=== PATIENT | female | born 1995 | race Caucasian/White ===

== ENCOUNTER 2023-08-30 11:58 | Emergency (ER) | payer OTHER, SELFPAY ==
[2023-08-30 12:07] VITALS: BP 134/100
--- NOTE | 2023-08-30 12:22 | EDRN ---
Pt is seated in a chair. She seems to be a bit angry with her parents; her answers tend to be argumentative to them.
--- NOTE | 2023-08-30 12:47 | ED.GENMED ---
History of Present Illness
<Karina Mcneal PA-C - Last Filed: 08/30/23 23:11>
General
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
Source: patient and family
Exam Limitations: none
Time Seen by Provider: 08/30/23 12:14
Nursing documentation reviewed up to this point in time: agreed with
History of Present Illness
History of Present Illness:
Patient is a 27 year old female presenting with urinary discomfort for the past few days. Patients parents state that she initially started complaining of dysuria approximately 1 week ago while they were on a [employer] cruise. Patient's mom
happened to have an old prescription for ciprofloxacin with her so she started giving her daughter ciprofloxacin 500 mg twice a day to treat a presumed UTI. Symptoms did not seem to resolve completely. Patient was seen by her GRAIN BROKER AND MARKET OPERATOR 2 days ago
where she had a pelvic exam and told that she had vaginitis. She was prescribed antifungal cream.. Urinalysis performed in office which showed no evidence of a current UTI. Patient has been continuously complaining of lower abdominal discomfort
and dysuria. Her parents brought her to the emergency department for further evaluation.
She denies any fever, chills, nausea, vomiting, anorexia. No back pain. No abnormal vaginal bleeding or discharge. Patient is not currently sexually active
Review of Systems
<Karina Mcneal PA-C - Last Filed: 08/30/23 23:11>
Review of Systems
Allergies reviewed?: Yes
All Other Systems: ROS reviewed and negative except as documented in HPI and ROS
Phy Exam
<Karina Mcneal PA-C - Last Filed: 08/30/23 23:11>
Physical Exam
Physical Exam:
Vitals: Patient's vital signs are stable. Afebrile
General: Patient is well appearing, no acute distress. Nontoxic appearing
Skin: Warm and dry, no rashes or lesions
Head: Normocephalic, atraumatic
Eyes: Sclera nonicteric. EOMs intact. No nystagmus.
Throat: Protecting airway
Neck: Normal ROM, no cervical spine tenderness, no meningismus
Cardiac: Regular rate and rhythm, no murmurs.
Pulm: Normal respiratory effort, no wheezes, rales, rhonchi heard on exam.
Abdomen: Abdomen soft. Very mild suprapubic tenderness without rebound tenderness or guarding. No CVA tenderness. No bruising or rashes overlying bilateral flanks.
Extremities: No evidence of cyanosis or edema. Great distal pulses.
Neuro: AAOx3. CN II-XII intact. No focal neurologic deficits.
Psychiatric: Normal affect.
Course
<Karina Mcneal PA-C - Last Filed: 08/30/23 23:11>
Orders/Labs/Results
Orders:
Orders
08/30/23 12:56
Test Result ONCE
08/30/23 13:36
Urinalysis Urgent
Date Specimen was Collected: 08/30/23
Time Specimen was Collected: 13:08
Urine Microscopic Urgent
Date Specimen was Collected: 08/30/23
Time Specimen was Collected: 13:08
Urine,Hcg qualitative screen [HCG, Urine Qualitative Screen] Urgent
Date Specimen was Collected: 08/30/23
Time Specimen was Collected: 13:08
Urine Culture Urgent
OPAL Source: Urine
Specimen Description:
Obtained by: [facility]
Date Specimen was Collected: 08/30/23
Time Specimen was Collected: 13:08
Abnormal Lab Results
08/30/23
13:36
Urine Ketones 1+ A
(Negative)
Urine Occult Blood 1+ A
(Negative)
Urine Bacteria Few A
(Negative)
Vital Signs
Temp: 98.6 F
Initial and Last Documented VS:
Initial Vital Signs
Pulse Resp BP Pulse Ox
98 16 134/100 100
08/30/23 12:07 08/30/23 12:07 08/30/23 12:07 08/30/23 12:07
Last Documented Vital Signs
Temp Pulse Resp BP Pulse Ox
98.6 F 98 16 134/100 100
08/30/23 12:48 08/30/23 12:07 08/30/23 12:07 08/30/23 12:07 08/30/23 12:07
<Halie Kimberlee, DO - Last Filed: 08/30/23 14:39>
Orders/Labs/Results
Orders:
Orders
08/30/23 12:56
Test Result ONCE
08/30/23 13:36
Urinalysis Urgent
Date Specimen was Collected: 08/30/23
Time Specimen was Collected: 13:08
Urine Microscopic Urgent
Date Specimen was Collected: 08/30/23
Time Specimen was Collected: 13:08
Urine,Hcg qualitative screen [HCG, Urine Qualitative Screen] Urgent
Date Specimen was Collected: 08/30/23
Time Specimen was Collected: 13:08
Urine Culture Urgent
OPAL Source: Urine
Specimen Description:
Obtained by: [employer] [facility]
Date Specimen was Collected: 08/30/23
Time Specimen was Collected: 13:08
Abnormal Lab Results
08/30/23
13:36
Urine Ketones 1+ A
(Negative)
Urine Occult Blood 1+ A
(Negative)
Urine Bacteria Few A
(Negative)
Vital Signs
Initial and Last Documented VS:
Initial Vital Signs
Pulse Resp BP Pulse Ox
98 16 134/100 100
08/30/23 12:07 08/30/23 12:07 08/30/23 12:07 08/30/23 12:07
Last Documented Vital Signs
Temp Pulse Resp BP Pulse Ox
98.6 F 98 16 134/100 100
08/30/23 12:48 08/30/23 12:07 08/30/23 12:07 08/30/23 12:07 08/30/23 12:07
<Karina Mcneal PA-C - Last Filed: 08/30/23 23:11>
MDM/Problems Addressed
Differential Diagnosis Includes:
Not limited to: UTI, pyelonephritis, kidney stone, etc
MDM/Problems Addressed:
27 year old female presenting with persistent dysuria and mild suprapubic discomfort following 5 days of ciprofloxacin. No fevers, chills, nausea, or vomiting. There was no diagnostic UA performed prior to initiation of antibiotic therapy - mom had
leftover medication at home. Patient did see OBGYN 2 days prior to ER visit, had pelvic exam and started on antifungal cream for suspected vaginitis. Vitals stable here in emergency department - patient is afebrile. Physical exam as noted above
although somewhat limited due to patients behavioral difficulties. Benign abdominal exam. No CVA tenderness. Very low suspicion for acute intraabdominal infectious process vs ovarian etiology. Will plan to check a UA - although results may be
inconclusive given concurrent abx therapy. Will send urine culture. Did discuss possible pelvic US which both parents and patient want to hold off on given patients behavioral challenges which I feel is reasonable.
UA somewhat equivocal for infection. Positive for bacteria although no evidence of WBCs or nitrite. Culture will be sent. Given persistence of symptoms - will switch patient to keflex and prescribe Azo for symptomatic management. Stable for
discharge. Return precautions discussed. Patient will follow-up with OBGYN this week.
Chronic conditions affecting care:
N/A
Acute Exacerbation and/or Progression of Chronic Illness:
N/A
<Karina Mcneal PA-C - Last Filed: 08/30/23 23:11>
*Pulse Oximetry
Patient hypoxic: no
*EKG
Interpreted by ED Provider?: NA
*Homebound Teacher Interpretation
Rate: Homebound Teacher- N/A
*Critical Care Note
Total Time (30-74mins, 75-104mins- exclusive of procedures): Not Applicable
Data Reviewed
Review of Other/Old Records Reveals: Records (Urinalysis performed a few days ago-no evidence of current UTI)
ED Attending Note
<Karina Mcneal PA-C - Last Filed: 08/30/23 23:11>
-
Portions of this chart may have been created with voice recognition software.� Occasional wrong word or��sound alike� substitutions may have occurred due to the inherent limitations of voice recognition software.
<Halie Mohan DO - Last Filed: 08/30/23 14:39>
ED Attending Note
Patient seen and examined by attending physician: Yes
I performed the substantive portion of visit, reviewed & personally made and approve the management plan that is documented in note by myself or NKECHI.: Yes
I performed a history and physical exam of patient and discussed management with resident, I reviewed resident's note and agree with documented findings and plan of care.: Yes
ED Attending Note:
27-year-old female presenting to the emergency department for dysuria and discomfort with urination. Notes symptoms for the past week. Patient had previously been on a cruise, other home leftover ciprofloxacin so gave it to her daughter with
suspicion for UTI. Symptoms persisted, so patient went to the polish compounder yesterday, had a urinalysis checked, unremarkable. She also had a pelvic exam, told that she had vaginitis and was started on a antifungal cream. She notes that she is
still having dysuria, prompting her to come little today. Patient does have some health issues, difficulty communicating. Vital signs are normal.
On exam, well-appearing, nontoxic. Difficult examination given patient's behavioral issues. Abdominal exam benign. Low suspicion for any serious intra-abdominal process or infection such as ovarian pathology. No lateralizing tenderness.
Continue to suspect UTI, possible resistance to ciprofloxacin. Urinalysis checked, few bacteria. Given persistence of symptoms, will change to Keflex. Will also treat with Azo for dysuria. Otherwise feel stable for continued outpatient follow-up.
Discharge Plan
Departure
Patient Disposition: Home (Routine Discharge)
Date of Disposition: 08/30/23
Time of Disposition: 14:22
Patient with high blood pressure during this ER visit?: Yes
Condition: Good
Covid-19: Not Applicable
Discharge Problem:
Dysuria, Bacteria in urine
Instructions: Urinary Tract Infection, Adult (DC), Dysuria, Adult (DC), BLOOD PRESSURE
Prescriptions:
New
cephalexin 500 mg capsule
500 mg PO BID 5 Days Qty: 10 0RF
phenazopyridine 200 mg tablet
200 mg PO TID Qty: 6 0RF
Referrals:
Gena Saravia DO [Active] - Next open appointment
Loida Torres DO [Family Provider] - Follow up in 5-7 days
Activity Restrictions/Additional Instructions:
RETURN TO THE EMERGENCY DEPARTMENT WITH ANY FEVERS, CHILLS, SEVERE ABDOMINAL PAIN, SEVERE BACK PAIN, INTRACTBALE NAUSEA/VOMITING, LOSS OF APPETITE, WORSENING IN CURRENT SYMPTOMS, OR ANY OTHER CONCERNS
-Two prescriptions have been sent to your pharmacy. You can discontinue the ciprofloxacin and begin taking the cephalexin twice per day for the next 5 days. You can take phenazopyridine three times per day x up to 2 days as needed for urinary
discomfort. This may cause discoloration in your urine.
-A urine culture has been sent. We will call if your treatment needs to be adjusted
-As discussed- you should follow up with your primary care provider / OBGYN for further evaluation
Interventions
Interventions:
*Risk Screen - Suicide Last Done: 08/30/23 12:20
*General Assessment Last Done: 08/30/23 12:07
*Neglect/Abuse Screening Last Done: 08/30/23 12:20
*ED COVID-19 Vaccine History Last Done: 08/30/23 12:07
*Nursing Disposition Last Done: 08/30/23 14:44
ED-Female Genitourinary Assessment Last Done: 08/30/23 13:09
Discharge Date and Time
Discharge Date/Time: 08/30/23 14:45
Print Language: BENGALI
[2023-08-30 13:49] LABS: Urine Albumin Trace (Neg - Trace); Urine Bilirubin Negative (Negative); Urine Character Clear (Clear); Urine Color Yellow; Urine Glucose Negative (Negative); Urine Ketone 1+ (Negative); Urine Leukocyte Negative (Negative); Urine Nitrite Negative (Negative); Urine Occult Blood 1+ (Negative); Urine Specific Gravity 1.025 (<1.030); Urine Urobilinogen Negative (Neg - 1+)
[2023-08-30 13:52] LABS: HCG, Urine Qualitative Screen Negative
[2023-08-30 13:56] LABS: Urine Red Blood Cell 0-2 /HPF (0-2); Urine Squamous Cell >30 /LPF (Few)
[2023-08-30 13:57] LABS: Urine Bacteria Few (Negative)
== END 2023-08-30 14:45 | disposition home or self-care (01) ==
LOC: EMR 11:58
PROVIDERS: Physician Assistant; EMERGENCY PHYSICIAN Student in an Organized Health Care Education/Training Program; FAMILY PHYSICIAN Family Medicine
DX: R30.0 Dysuria (principal); R82.71 Bacteriuria; R10.30 Lower abdominal pain, unspecified
CPT/HCPCS: 99283; 81003; 81015; 81025; 87077; 87086; 87186

== ENCOUNTER 2023-09-04 22:24 | Emergency (ER) | payer OTHER, SELFPAY ==
[2023-09-04 22:31] VITALS: BP 149/106
[2023-09-04 23:33] VITALS: BMI 31.9
[2023-09-04 23:57] LABS: % Basophils 0.4 % (0-2); % Eosinophils 1.9 % (0-6); % Immature Granulocytes 0.3 % (0-0.5); % Lymphocytes 31.2 % (20.5-51.1); % Monocytes 8.3 % (1.7-9.3); % Neutrophils 57.9 % (42.2-75.2); Absolute Eosinophils 0.2 10^3/uL (0-0.7); Absolute Lymphocytes 2.8 10^3/uL (1.2-3.4); Absolute Monocytes 0.8 10^3/uL (0.1-0.6); Absolute Neutrophils 5.2 10^3/uL (1.4-6.5); Hematocrit 38.5 % (37.0-47.0); Hemoglobin 13.6 g/dL (12.0-16.0); Mean Corp Hgb Conc. 35.3 g/dL (33.0-37.0); Mean Corpuscular Hgb 29.4 pg (27.0-31.0); Mean Corpuscular Volume 83.2 fL (81.0-99.0); Mean Platelet Volume 9.7 fL (7.4-10.4); Nucleated Red Blood Cells % 0 %; Platelet Count 258 10^3/uL (130-400); Red Blood Cell Count 4.63 10^6/uL (4.20-5.40); Red Cell Dist. Width 13.7 % (11.5-14.5)
[2023-09-05 00:12] LABS: HCG, Serum Qualitative Screen Negative
[2023-09-05 00:16] LABS: ALT (SGPT) 24 U/L (0-35); AST (SGOT) 25 U/L (14-36); Albumin 4.4 g/dl (3.5-5.0); Alkaline Phosphatase 65 U/L (38-126); Blood Urea Nitrogen 19 mg/dl (7-17); Calcium 9.3 mg/dl (8.4-10.2); Carbon Dioxide 25 mmol/L (22-30); Chloride 105 mmol/L (98-107); Estimated Creatinine Clearance 118 ml/min; Glucose 82 mg/dl (70-99); Potassium 3.9 mmol/L (3.5-5.1); Sodium 137 mmol/L (135-145); Total Bilirubin 0.7 mg/dl (0.2-1.3); Total Protein 6.9 g/dl (6.3-8.2); eGFR > 60.00
--- NOTE | 2023-09-05 00:36 | ED.GENMED ---
History of Present Illness
General
Chief Complaint: Urinary Symptoms
Source: patient, family (Mother and father-accompanying) and previous hospital records (ED visit for very similar complaint to August 29. Urinalysis appeared to be contaminated specimen with greater than 30 squamous epithelial cells, few bacteria, 3-5
WBCs. Urine culture however growing greater than 100,000 colony count E. coli, sensitive to cefazolin, resistant to Levaquin)
Exam Limitations: none
Time Seen by Provider: 09/04/23 23:30
Nursing documentation reviewed up to this point in time: agreed with
History of Present Illness
History of Present Illness:
This is a 27-year-old female with history of Prader-Willi syndrome. Mild intellectual disability. Resides at home with her parents. She complains of more than 2-week history of suprapubic discomfort initially associated with dysuria. Symptoms
initially began while family was on [place]. Initially treated with a 5-day course of Cipro�an old prescription of mom's with no improvement in symptoms. Mom admits that Cipro prescription was approximately 8 years old.
She was evaluated by her automat car attendant August 27, urine dip during that visit was unremarkable and was diagnosed with vaginitis, treated with antifungal cream.
She then presented to this ED August 29 with similar complaints of suprapubic discomfort and dysuria. Urinalysis showed only few bacteria but appeared to be a contaminated specimen with greater than 30 squamous epithelial cells. Treated for
presumptive UTI with a 5-day course of Keflex 500 mg twice daily.
Urine culture is positive for E. coli, sensitive to cefazolin, resistant to Levaquin, resistant to Bactrim. Patient had mild improvement in symptoms 2 to 3 days ago but has since returned.
She has not had a fever nor chills, she denies back pain or flank pain, no difficulty moving her bowels. No nausea nor vomiting.
Last menstrual period 3 weeks ago, normal and on time.
Past History
Past History
ED Past Medical History: Other (Prader-Willi syndrome)
ED Past Surgical History: Orthopedic and Tonsilectomy
Social History
Tobacco: Non-smoker
Alcohol: None
Drug: None
Personal: Single
Living: with family
Employment: Not employed
Family History
Family History: Other (Noncontributory)
Phy Exam
Physical Exam
Physical Exam:
GENERAL: 27-year-old female appears somewhat younger than stated age. Mild intellectual delay. She is bright and alert, easily communicative, occasionally boisterous but overall appears in no acute distress. Both mother and father are
accompanying.
EYE: anicteric
NECK: Supple, nontender, no meningismus, no significant adenopathy.
ENT: oral mucosa is moist. No rhinorrhea.
CARDIAC: Regular rate and rhythm. no murmur.
LUNGS: Clear breath sounds bilaterally, no acute respiratory distress, no wheezes/rales/rhonchi
ABDOMEN: Rotund, soft, nondistended, minimal tenderness with deep palpation only to the suprapubic region, no r/g, no cvat. No palpable masses. Bladder is not palpably distended. Normoactive BS.
NEUROLOGICAL: Alert and oriented x3, no focal neuro deficits. Gait is tinajero and steady.
SKIN: Warm and dry, normal color, skin intact. No rash.
MUSCULOSKELETAL: No C/C/E. peripheral pulses are full and equal b/l. No palpable tenderness.
PSYCH: Intermittently briefly argumentative, somewhat boisterous, cooperative.
Course
Orders/Labs/Results
Orders:
Orders
09/04/23 23:40
Test Result ONCE
09/04/23 23:51
CRP [C-Reactive Protein] Urgent
Complete Blood Count/With Diff Urgent
Comprehensive Metabolic Panel Urgent
HCG, Serum Qualitative Screen Urgent
09/05/23 01:31
Urinalysis Reflex To Culture Urgent
Date Specimen was Collected: 09/05/23
Time Specimen was Collected: 01:29
Urine Microscopic Reflex Cult Urgent
09/05/23 23:42
US Pelvis Only (non-obstetric) Urgent
Reason For Exam: PELVIC PAIN X 2 WEEKS
Abnormal Lab Results
09/04/23 09/05/23
23:51 01:31
Absolute Monos (auto) 0.8 H 10^3/uL
(0.1-0.6)
BUN 19 H mg/dl
(7-17)
Ur Occult Blood Reflex 1+ A
(Negative)
Urine Glucose 1+ A
(Negative)
09/04/23 23:51
09/04/23 23:51
Vital Signs
Initial and Last Documented VS:
Initial Vital Signs
Temp Pulse Resp BP Pulse Ox
98 F 96 14 149/106 97
09/04/23 22:31 09/04/23 22:31 09/04/23 22:31 09/04/23 22:31 09/04/23 22:31
Last Documented Vital Signs
Temp Pulse Resp BP Pulse Ox
98 F 96 14 149/106 97
09/04/23 22:31 09/04/23 22:31 09/04/23 22:31 09/04/23 22:31 09/04/23 22:31
MDM/Problems Addressed
Differential Diagnosis Includes:
Concern for persistent UTI. Urine culture positive for E. coli and sensitive to cefazolin but concern for inadequate dosing at 500 mg twice daily for 5 days.
Other consideration is interstitial cystitis, ovarian cyst, colitis. Appendicitis is less likely.
Will check labs, inflammatory markers and plan for pelvic ultrasound.
*Radiology
Radiology exam reviewed: radiology read reviewed (Pelvic ultrasound is unremarkable.)
*Pulse Oximetry
Patient hypoxic: no
*Critical Care Note
Total Time (30-74mins, 75-104mins- exclusive of procedures): Not Applicable
Update Note
Update Note:
09/05/2023 0216 AM
Patient resting comfortably, reports relief of abdominal pain/pelvic pain currently.
Labs are reassuring, all within normal limits including normal white blood cell count, normal CRP.
Urinalysis is pending however with current antibiotic use I suspect we will not be helpful and will await repeat culture.
I have concern for partially treated UTI due to subtherapeutic Keflex dosing thus recommend we increase Keflex to 2000 mg twice daily over the next 5 days.
Discussed importance of remaining well-hydrated on a daily basis.
Continue ibuprofen 600 mg every 6-8 hours as needed for pain.
Prompt follow-up with PCP for recheck.
ED Attending Note
-
Portions of this chart may have been created with voice recognition software.� Occasional wrong word or��sound alike� substitutions may have occurred due to the inherent limitations of voice recognition software.
Discharge Plan
Departure
Patient Disposition: Home (Routine Discharge)
Date of Disposition: 09/05/23
Time of Disposition: 02:13
Patient with high blood pressure during this ER visit?: No
Condition: Good
Discharge Problem:
Pelvic pain, PERSISTENT UTI
Instructions: Urinary tract infections in adults, Pelvic Pain ED
Prescriptions:
New
cephalexin 500 mg capsule
1,000 mg PO BID 5 Days Qty: 20 0RF
No Action
cephalexin 500 mg capsule
500 mg PO BID 5 Days Qty: 10 0RF
phenazopyridine 200 mg tablet
200 mg PO TID Qty: 6 0RF
Referrals:
Loida Torres DO [Family Provider] - Call in 1-3 days for appt
Interventions
Interventions:
*Risk Screen - Suicide Last Done: 09/04/23 22:31
*General Assessment Last Done: 09/04/23 22:31
*Neglect/Abuse Screening Last Done: 09/04/23 22:31
ED- Fall Risk Assessment Last Done: 09/04/23 23:33
ED-Female Genitourinary Assessment Last Done: 09/04/23 23:33
Discharge Date and Time
Print Language: TELUGU
[2023-09-05 01:40] LABS: Urine Albumin Negative (Neg - Trace); Urine Bilirubin Negative (Negative); Urine Character Clear (Clear); Urine Color Yellow; Urine Glucose 1+ (Negative); Urine Ketone Negative (Negative); Urine Leukocyte Negative (Negative); Urine Nitrite Negative (Negative); Urine Occult Blood 1+ (Negative); Urine Specific Gravity 1.015 (<1.030); Urine Urobilinogen Negative (Neg - 1+)
[2023-09-05 02:06] LABS: Urine Bacteria Few (Negative); Urine Squamous Cell >30 /LPF (Few); Urine White Cell 0-2 /HPF (0-5)
[2023-09-05] MEDS: KEFLEX 1000 MG PO (02:17)
[2023-09-05 02:32] VITALS: BP 138/85
== END 2023-09-05 02:33 | disposition home or self-care (01) ==
LOC: EMR 22:24
PROVIDERS: EMERGENCY PHYSICIAN Emergency Medicine; FAMILY PHYSICIAN Family Medicine
DX: R10.2 Pelvic and perineal pain (principal); N39.0 Urinary tract infection, site not specified; Q87.11 Prader-Willi syndrome; F70 Mild intellectual disabilities
CPT/HCPCS: 99284; 76856; 80053; 81003; 81015; 84703; 85025; 86140

== ENCOUNTER → 2023-12-09 10:16 | Outpatient (REF) | payer OTHER, SELFPAY | LOC: MRI 3T 10:16 | PROVIDERS: ATTENDING PHYSICIAN Psychiatry & Neurology Neurology | DX: R94.01 Abnormal electroencephalogram [EEG] (principal) | CPT/HCPCS: 70551 ==

== ENCOUNTER → 2023-12-16 10:18 | Outpatient (REF) | payer OTHER, SELFPAY ==
--- NOTE | 2023-12-16 12:43 | EEG.RPT ---
Electroencephalogram Report
Recording
Date of EE12/16/23
Type of EEG: Routine
Length of EEG recordin minutes
Done with Video Recording: Yes
Patient Status: Outpatient
Recording Conditions: Awake and Drowsy
Hyperventilation Performed: Yes
Photic Stimulation Performed: Yes
Report
LESS THAN 1 HOUR EEG REPORT
EEG INTERPRETATION:
Unremarkable EEG for age
CLINICAL CORRELATION:
A normal EEG does not rule out a diagnosis of epilepsy. If clinical suspicion for seizure persists, a prolonged recording may be warranted.
Clinical correlation is advised.
METHODS:
A 21 channel digitized electroencephalogram (EEG) was performed in the [facility]. The 10/20 international system of electrode placement was used with ECG and lateral/vertical eye movements recorded. Persyst quantitative EEG
analysis was performed.
ELECTROENCEPHALOGRAPHER IMPRESSION(S):
Quality of study
Good
Background
Well maintained, low-medium amplitude maximal alpha-frequency and unremarkable anterior-posterior voltage gradient
With eye opening the background activity changed to a low voltage mixture of frequencies.
Sleep
Drowsiness present
Hyperventilation
Did not activate the record
Photic Stimulation
Did not activate the record
ECG
Normal sinus rhythm
== END ==
LOC: EEG 10:18
PROVIDERS: ATTENDING PHYSICIAN Psychiatry & Neurology Neurology; FAMILY PHYSICIAN Family Medicine
DX: R94.01 Abnormal electroencephalogram [EEG] (principal)
CPT/HCPCS: 71046; 95816

== ENCOUNTER → 2024-05-19 13:06 | Outpatient (REF) | payer OTHER, SELFPAY | LOC: HWRAD 13:06 | PROVIDERS: ATTENDING PHYSICIAN Obstetrics & Gynecology; FAMILY PHYSICIAN Nurse Practitioner | DX: N91.2 Amenorrhea, unspecified (principal) | CPT/HCPCS: 76856 ==